=== PATIENT | male | born 1990 ===

== ENCOUNTER 2023-01-14 17:10 | Emergency (ER) | payer OTHER ==
[~2023-01-14] VITALS: Ht 177.8 cm; Wt 77.1 kg
[2023-01-14 17:42] VITALS: BP 163/86
== END 2023-01-14 19:56 | disposition home or self-care (01) ==
LOC: ER 17:10
DX: S93.401A Sprain of unspecified ligament of right ankle, initial encounter (principal); W20.8XXA Other cause of strike by thrown, projected or falling object, initial encounter; Y92.89 Other specified places as the place of occurrence of the external cause; Y99.0 Civilian activity done for income or pay
CPT/HCPCS: 73610

== ENCOUNTER 2023-03-04 15:16 | Emergency (ER) | payer OTHER ==
[~2023-03-04] VITALS: Ht 177.8 cm; Wt 72.6 kg
[2023-03-04 15:29] VITALS: BP 137/80
== END 2023-03-04 15:50 | disposition home or self-care (01) ==
LOC: ER 15:16
DX: R20.2 Paresthesia of skin (principal)
CPT/HCPCS: 99282